=== PATIENT | male | born 1965 | race Asian ===

== ENCOUNTER 2019-03-05 06:27 | Day surgery (SDC) | payer OTHER ==
[~2019-03-05] VITALS: Ht 175.3 cm; Wt 77.1 kg
[2019-03-05] MEDS ORDERED: fentaNYL 0.05 MG/ML VIAL ONE (07:53)
[2019-03-05] MEDS ORDERED: LIDOCAINE 2% 100 MG/5 ML UJET TP ONE (07:54)
== END 2019-03-05 09:32 | disposition home or self-care (01) ==
LOC: MDS 06:27 → MMU 06:28 → MDS 09:32
PROVIDERS: ATTEND Internal Medicine Gastroenterology
DX: Z12.11 Encounter for screening for malignant neoplasm of colon (principal); D12.4 Benign neoplasm of descending colon; D12.5 Benign neoplasm of sigmoid colon; I10 Essential (primary) hypertension; F17.210 Nicotine dependence, cigarettes, uncomplicated; Z79.82 Long term (current) use of aspirin; Z79.899 Other long term (current) drug therapy; Z95.5 Presence of coronary angioplasty implant and graft
CPT/HCPCS: 45385; J3010